=== PATIENT | male | born 1960 | race African-American/Black ===

== ENCOUNTER 2017-11-05 11:21 | Inpatient (IN) | payer MEDICARE, OTHER ==
[2017-11-05 12:59] LABS: BASO # 0.1 x10^3/uL (0.0-0.2); BASO % 1 % (0-3); EOS # 0.1 x10^3/uL (0.0-0.7); EOS % 2 % (0-3); HEMATOCRIT 39.6 % (39.0-53.0); HEMOGLOBIN 12.7 g/dL (13.0-17.5); LYMPH # 0.6 x10^3/uL (1.0-4.8); LYMPH % 6 % (24-48); MEAN CORPUSCULAR HEMOGLOBIN 28 pg (25-35); MEAN CORPUSCULAR HGB CONC 32 g/dL (31-37); MEAN CORPUSCULAR VOLUME 88 fL (79-100); MONO # 0.4 x10^3/uL (0.0-1.1); MONO % 4 % (0-9); NEUT # 7.5 x10^3uL (1.8-7.7); NEUT % 87 % (31-73); PLATELET COUNT 193 x10^3/uL (140-400); RED BLOOD COUNT 4.53 x10^6/uL (4.30-5.70); RED CELL DISTRIBUTION WIDTH 15.9 % (11.5-14.5); WHITE BLOOD COUNT 8.6 x10^3/uL (4.0-11.0)
[2017-11-05 13:02] LABS: ADD MAN DIFF? YES
[2017-11-05 13:06] LABS: ANION GAP 12 (6-14); BLOOD UREA NITROGEN 14 mg/dL (8-26); BUN/CREATININE RATIO 10 (6-20); CALCIUM 8.6 mg/dL (8.5-10.1); CARBON DIOXIDE 25 mmol/L (21-32); CHLORIDE 107 mmol/L (98-107); CREATININE 1.4 mg/dL (0.7-1.3); GFR 63.2; GLUCOSE 121 mg/dL (70-99); POTASSIUM 3.4 mmol/L (3.5-5.1); SODIUM 144 mmol/L (136-145)
[2017-11-05 13:12] LABS: ALBUMIN 3.5 g/dL (3.4-5.0); ALBUMIN/GLOBULIN RATIO 0.7 (1.0-1.7); ALK PHOS 96 U/L (46-116); ALT (SGPT) 50 U/L (16-63); AST (SGOT) 30 U/L (15-37); TOTAL BILIRUBIN 0.6 mg/dL (0.2-1.0); TOTAL PROTEIN 8.2 g/dL (6.4-8.2)
[2017-11-05 13:21] LABS: INR 1.1 (0.8-1.1)
[2017-11-05 13:22] LABS: TROPONINI 0.098 ng/mL (0.000-0.055)
[2017-11-05 13:52] LABS: % BANDS 1 % (0-9); % LYMPHS 6 % (24-48); % MONOS 8 % (0-10); % SEGS 85 % (35-66); PLT ESTIMATE ADEQUATE (ADEQUATE)
[2017-11-05] MEDS: ASPIRIN CHEWABLE 81 MG TABLET. PO (16:17)
[2017-11-05] MEDS ORDERED: CONTRAST GIVEN MC (16:45)
[2017-11-05] MEDS: IOHEXOL 300 MG/ML 100ML VIAL. IV (17:00)
[2017-11-05 19:55] LABS: TROPONINI 0.126 ng/mL (0.000-0.055)
[2017-11-06 00:01] LABS: POC GLUCOSE 191 mg/dL (70-99)
[2017-11-06 00:01] LABS: POC GLUCOSE 268 mg/dL (70-99)
[2017-11-06 00:01] LABS: POC GLUCOSE 186 mg/dL (70-99)
[2017-11-06 02:50] LABS: TROPONINI 0.137 ng/mL (0.000-0.055)
[2017-11-06 05:07] LABS: ADD MAN DIFF? NO
[2017-11-06 05:24] LABS: BASO % 0 % (0-3); EOS % 1 % (0-3); HEMOGLOBIN 13.1 g/dL (13.0-17.5); LYMPH # 0.5 x10^3/uL (1.0-4.8); LYMPH % 7 % (24-48); MEAN CORPUSCULAR HEMOGLOBIN 28 pg (25-35); MEAN CORPUSCULAR HGB CONC 32 g/dL (31-37); MEAN CORPUSCULAR VOLUME 87 fL (79-100); MONO # 0.3 x10^3/uL (0.0-1.1); MONO % 5 % (0-9); NEUT # 5.7 x10^3uL (1.8-7.7); NEUT % 87 % (31-73); PLATELET COUNT 205 x10^3/uL (140-400); RED BLOOD COUNT 4.72 x10^6/uL (4.30-5.70); RED CELL DISTRIBUTION WIDTH 16.3 % (11.5-14.5); WHITE BLOOD COUNT 6.6 x10^3/uL (4.0-11.0)
[2017-11-06] MEDS: LISINOPRIL 10 MG TABLET PO ×2 (08:25→08:29)
[2017-11-06] MEDS: amLODIPine BESYLATE 5 MG TABLET PO ×2 (08:25→08:29)
[2017-11-06 09:39] LABS: TROPONINI 0.162 ng/mL (0.000-0.055)
[2017-11-06 09:45] LABS: CKMB INDEX 1.1 % (0-4); CKMB MASS 2.9 ng/mL (0.0-3.6); CREATINE KINASE 259 U/L (39-308)
[2017-11-06 15:11] LABS: MRSA BY PCR Negative (Negative)
[2017-11-07] MEDS: amLODIPine BESYLATE 5 MG TABLET PO ×3 (08:44→15:00)
[2017-11-07] MEDS: LISINOPRIL 10 MG TABLET PO (08:45)
[2017-11-07] MEDS ORDERED: LIDOCAINE 2% 20 ML VIAL. (10:48)
[2017-11-07] MEDS ORDERED: IODIXANOL 320 MG/ML 100 ML VIAL. (10:48)
[2017-11-07] MEDS ORDERED: CONTRAST GIVEN MC (12:45)
[2017-11-07] MEDS ORDERED: fentaNYL PF VIAL 100 MCG/2 ML VIAL (12:47)
[2017-11-07] MEDS ORDERED: MIDAZOLAM HCL/PF 2 MG/2 ML VIAL. ×2 (12:47→13:38)
[2017-11-07] MEDS ORDERED: VERAPAMIL 5 MG/2 ML VIAL. (13:07)
[2017-11-07] MEDS ORDERED: HEPARIN for IV BOLUS 10,000 UNIT/10 ML VIAL. (13:08)
[2017-11-07] MEDS ORDERED: NITROGLYCERIN 200 MCG/2 ML SYRINGE FOR CATH/VASC LAB. (13:08)
[2017-11-07] MEDS ORDERED: hydrALAZINE 20 MG/ML VIAL. (13:17)
[2017-11-07] MEDS: hydrALAZINE 20 MG/ML VIAL. IVP (13:22)
[2017-11-07] MEDS ORDERED: ONDANSETRON PF 4 MG/2 ML VIAL. IV (13:45)
[2017-11-07] MEDS ORDERED: ACETAMINOPHEN 325 MG TABLET. PO (13:45)
[2017-11-07] MEDS: IODIXANOL 320 MG/ML 100 ML VIAL. IART (13:53)
[2017-11-07] MEDS: LIDOCAINE 2% 20 ML VIAL. IJ (13:54)
[2017-11-07] MEDS: fentaNYL PF VIAL 100 MCG/2 ML VIAL IV (13:55)
[2017-11-07] MEDS: MIDAZOLAM HCL/PF 2 MG/2 ML VIAL. IV (13:56)
[2017-11-07] MEDS: VERAPAMIL 5 MG/2 ML VIAL. IART (13:58)
[2017-11-07] MEDS: NITROGLYCERIN 200 MCG/2 ML SYRINGE FOR CATH/VASC LAB. IART (13:59)
[2017-11-07] MEDS: HEPARIN for IV BOLUS 10,000 UNIT/10 ML VIAL. IART (13:59)
[2017-11-07] MEDS: ASPIRIN CHEWABLE 81 MG TABLET. PO (14:50)
[2017-11-08 07:00] LABS: ADD MAN DIFF? NO
[2017-11-08 07:04] LABS: BASO % 1 % (0-3); EOS # 0.1 x10^3/uL (0.0-0.7); EOS % 3 % (0-3); HEMATOCRIT 38.9 % (39.0-53.0); HEMOGLOBIN 12.4 g/dL (13.0-17.5); LYMPH # 0.6 x10^3/uL (1.0-4.8); LYMPH % 13 % (24-48); MEAN CORPUSCULAR HEMOGLOBIN 27 pg (25-35); MEAN CORPUSCULAR HGB CONC 32 g/dL (31-37); MEAN CORPUSCULAR VOLUME 86 fL (79-100); MONO # 0.4 x10^3/uL (0.0-1.1); MONO % 9 % (0-9); NEUT # 3.2 x10^3uL (1.8-7.7); NEUT % 74 % (31-73); PLATELET COUNT 226 x10^3/uL (140-400); RED BLOOD COUNT 4.54 x10^6/uL (4.30-5.70); RED CELL DISTRIBUTION WIDTH 15.9 % (11.5-14.5); WHITE BLOOD COUNT 4.3 x10^3/uL (4.0-11.0)
[2017-11-08 07:33] LABS: ANION GAP 12 (6-14); BLOOD UREA NITROGEN 17 mg/dL (8-26); CALCIUM 8.6 mg/dL (8.5-10.1); CARBON DIOXIDE 23 mmol/L (21-32); CHLORIDE 107 mmol/L (98-107); CREATININE 1.3 mg/dL (0.7-1.3); GFR 68.8; GLUCOSE 93 mg/dL (70-99); POTASSIUM 3.9 mmol/L (3.5-5.1); SODIUM 142 mmol/L (136-145)
[2017-11-08] MEDS: ASPIRIN CHEWABLE 81 MG TABLET. PO (09:18)
[2017-11-08] MEDS: amLODIPine BESYLATE 10 MG TABLET PO (09:19)
[2017-11-08] MEDS: LISINOPRIL 20 MG TABLET PO (09:19)
[2017-11-08] MEDS: DOCUSATE SODIUM 100 MG CAPSULE. PO (09:19)
[2017-11-08 15:12] LABS: CHOLESTEROL 226 mg/dL (0-200); HDLC 74 mg/dL (40-60); LDLC 141 mg/dL (0-100); NON-HDL CHOLESTEROL 152 mg/dL (0-129); TRIGLYCERIDES 55 mg/dL (0-150); VLDLC 11 mg/dL (0-40)
[2017-11-08 15:13] LABS: CHOLESTEROL/HDL RATIO 3.1
[2017-11-08 16:01] LABS: THYROID STIM HORMONE (TSH) 3.578 uIU/mL (0.358-3.74)
[2017-11-08] MEDS: CARVEDILOL 3.125 MG TABLET. PO (17:00)
[2017-11-08 19:14] LABS: HEMOGLOBIN A1C 4.3 % (4.8-5.6)
[2017-11-08] MEDS: ATORVASTATIN CALCIUM 20 MG TABLET PO (21:30)
[2017-11-08] MEDS: LISINOPRIL 10 MG TABLET PO (21:30)
[2017-11-08] MEDS: MORPHINE SULFATE 4 MG/ML DISP.SYRIN. IV (22:25)
[2017-11-08 23:16] LABS: ANION GAP 14 (6-14); BLOOD UREA NITROGEN 19 mg/dL (8-26); BUN/CREATININE RATIO 11 (6-20); CALCIUM 9.2 mg/dL (8.5-10.1); CARBON DIOXIDE 23 mmol/L (21-32); CHLORIDE 105 mmol/L (98-107); CREATININE 1.8 mg/dL (0.7-1.3); GFR 47.3; GLUCOSE 113 mg/dL (70-99); POTASSIUM 3.8 mmol/L (3.5-5.1); SODIUM 142 mmol/L (136-145)
[2017-11-08 23:17] LABS: MAGNESIUM 2.2 mg/dL (1.8-2.4)
[2017-11-08 23:21] LABS: ALBUMIN 3.2 g/dL (3.4-5.0); ALBUMIN/GLOBULIN RATIO 0.7 (1.0-1.7); ALK PHOS 89 U/L (46-116); ALT (SGPT) 33 U/L (16-63); AST (SGOT) 30 U/L (15-37); TOTAL BILIRUBIN 0.5 mg/dL (0.2-1.0); TOTAL PROTEIN 8.1 g/dL (6.4-8.2)
[2017-11-09] MEDS: LISINOPRIL 20 MG TABLET PO (09:00)
[2017-11-09] MEDS: ASPIRIN CHEWABLE 81 MG TABLET. PO (11:03)
[2017-11-09] MEDS: amLODIPine BESYLATE 10 MG TABLET PO (11:03)
[2017-11-09] MEDS: IV NORMAL SALINE 1000ML BAG 1,000 ML IV (17:07)
[2017-11-09] MEDS: CARVEDILOL 6.25 MG TABLET. PO (17:08)
[2017-11-09] MEDS: hydrALAZINE 20 MG/ML VIAL. IVP (17:09)
[2017-11-09] MEDS: ATORVASTATIN CALCIUM 20 MG TABLET PO (20:51)
[2017-11-09] MEDS: AMIODARONE HCL 200 MG TABLET. PO (20:52)
[2017-11-10 05:04] LABS: ADD MAN DIFF? NO
[2017-11-10 05:13] LABS: BASO % 0 % (0-3); EOS # 0.2 x10^3/uL (0.0-0.7); EOS % 3 % (0-3); HEMATOCRIT 42.7 % (39.0-53.0); HEMOGLOBIN 13.3 g/dL (13.0-17.5); LYMPH # 0.3 x10^3/uL (1.0-4.8); LYMPH % 5 % (24-48); MEAN CORPUSCULAR HEMOGLOBIN 27 pg (25-35); MEAN CORPUSCULAR HGB CONC 31 g/dL (31-37); MEAN CORPUSCULAR VOLUME 88 fL (79-100); MONO # 0.4 x10^3/uL (0.0-1.1); MONO % 6 % (0-9); NEUT # 5.2 x10^3uL (1.8-7.7); NEUT % 85 % (31-73); PLATELET COUNT 231 x10^3/uL (140-400); RED BLOOD COUNT 4.87 x10^6/uL (4.30-5.70); RED CELL DISTRIBUTION WIDTH 16.2 % (11.5-14.5); WHITE BLOOD COUNT 6.1 x10^3/uL (4.0-11.0)
[2017-11-10 05:30] LABS: ANION GAP 8 (6-14); BLOOD UREA NITROGEN 19 mg/dL (8-26); CARBON DIOXIDE 27 mmol/L (21-32); CHLORIDE 107 mmol/L (98-107); CREATININE 1.6 mg/dL (0.7-1.3); GFR 54.2; GLUCOSE 98 mg/dL (70-99); POTASSIUM 4.3 mmol/L (3.5-5.1); SODIUM 142 mmol/L (136-145)
[2017-11-10] MEDS ORDERED: IV RINGERS,LACTATED 1000ML 1,000 ML IV (07:40)
[2017-11-10] MEDS ORDERED: MORPHINE SULFATE 2 MG/ML DISP.SYRIN. IV (07:45)
[2017-11-10] MEDS ORDERED: fentaNYL PF VIAL 100 MCG/2 ML VIAL IV ×2 (07:45)
[2017-11-10] MEDS ORDERED: LIDOCAINE 1% PF 2 ML VIAL. ID (07:45)
[2017-11-10] MEDS ORDERED: ONDANSETRON PF 4 MG/2 ML VIAL. IV (07:45)
[2017-11-10] MEDS ORDERED: PROCHLORPERAZINE 10 MG/2 ML VIAL. IV (07:45)
[2017-11-10] MEDS ORDERED: HYDROmorphone 2 MG/ML VIAL IV (07:45)
[2017-11-10] MEDS: CARVEDILOL 6.25 MG TABLET. PO ×2 (08:17→17:31)
[2017-11-10] MEDS: ASPIRIN CHEWABLE 81 MG TABLET. PO (08:17)
[2017-11-10] MEDS: amLODIPine BESYLATE 10 MG TABLET PO (08:17)
[2017-11-10] MEDS: AMIODARONE HCL 200 MG TABLET. PO ×2 (08:18→21:11)
[2017-11-10 08:53] LABS: BILIRUBIN,URINE NEGATIVE (NEG); CLARITY,URINE CLEAR; COLOR,URINE YELLOW; GLUCOSE,URINE NEGATIVE (NEG); NITRITE,URINE POSITIVE (NEG); PROTEIN,URINE 30 mg/dL (NEG-TRACE)
[2017-11-10] MEDS ORDERED: LIDOCAINE 2%/EPI 1:100,000 20 ML VIAL. (09:17)
[2017-11-10] MEDS ORDERED: fentaNYL PF VIAL 100 MCG/2 ML VIAL (09:18)
[2017-11-10] MEDS ORDERED: MIDAZOLAM HCL/PF 2 MG/2 ML VIAL. ×2 (09:18→09:53)
[2017-11-10 09:25] LABS: BACTERIA,URINE FEW /HPF (0-FEW); RBC,URINE 0 /HPF (0-2); SQUAMOUS EPITHELIAL CELL,UR OCC /LPF; WBC,URINE 0 /HPF (0-4)
[2017-11-10] MEDS ORDERED: hydrALAZINE 20 MG/ML VIAL. (09:50)
[2017-11-10] MEDS ORDERED: IODIXANOL 320 MG/ML 100 ML VIAL. (09:58)
[2017-11-10] MEDS: hydrALAZINE 20 MG/ML VIAL. IVP (10:00)
[2017-11-10] MEDS: BACITRACIN 50,000 UNIT in IV NORMAL SALINE 250ML 250 ML IRR (11:04)
[2017-11-10] MEDS: LIDOCAINE 2%/EPI 1:100,000 20 ML VIAL. IJ (11:05)
[2017-11-10] MEDS: MIDAZOLAM HCL/PF 2 MG/2 ML VIAL. IV (11:08)
[2017-11-10] MEDS: IODIXANOL 320 MG/ML 100 ML VIAL. IART (11:08)
[2017-11-10] MEDS: fentaNYL PF VIAL 100 MCG/2 ML VIAL IV (11:08)
[2017-11-10] MEDS ORDERED: NO ANTICOAGULANT THERAPY. MC (11:15)
[2017-11-10] MEDS ORDERED: PROPOFOL 20 ML IV (16:06)
[2017-11-10] MEDS: ATORVASTATIN CALCIUM 20 MG TABLET PO (21:10)
[2017-11-10] MEDS: traMADol 50 MG TABLET PO (21:10)
[2017-11-11] MEDS: traMADol 50 MG TABLET PO (09:17)
[2017-11-11] MEDS: ASPIRIN CHEWABLE 81 MG TABLET. PO (10:54)
[2017-11-11] MEDS: amLODIPine BESYLATE 10 MG TABLET PO (10:54)
[2017-11-11] MEDS: CARVEDILOL 6.25 MG TABLET. PO (10:55)
[2017-11-11] MEDS: AMIODARONE HCL 200 MG TABLET. PO (10:55)
== END 2017-11-11 16:40 | DRG 222 ==
LOC: 2 SOUTH 11-06 12:55 → ER 11:21 → 2 SOUTH 15:04 → 1 WEST ICU 18:08
PROC: 4A023N7 Measurement of Cardiac Sampling and Pressure, Left Heart, Percutaneous Approach (ICD-10-PCS; principal; 2017-11-07)
PROC: B2111ZZ Fluoroscopy of Multiple Coronary Arteries using Low Osmolar Contrast (ICD-10-PCS; 2017-11-07)
PROC: B2151ZZ Fluoroscopy of Left Heart using Low Osmolar Contrast (ICD-10-PCS; 2017-11-07)
PROC: 02HK3KZ Insertion of Defibrillator Lead into Right Ventricle, Percutaneous Approach (ICD-10-PCS; 2017-11-11)
PROC: 0JH608Z Insertion of Defibrillator Generator into Chest Subcutaneous Tissue and Fascia, Open Approach (ICD-10-PCS; 2017-11-11)
DX: I13.0 Hypertensive heart and chronic kidney disease with heart failure and stage 1 through stage 4 chronic kidney disease, or unspecified chronic kidney disease (principal); I21.A1 Myocardial infarction type 2; I49.01 Ventricular fibrillation; I50.21 Acute systolic (congestive) heart failure; N17.9 Acute kidney failure, unspecified; I47.2 Ventricular tachycardia; I16.1 Hypertensive emergency; I42.9 Cardiomyopathy, unspecified; D32.9 Benign neoplasm of meninges, unspecified; E87.5 Hyperkalemia; G93.89 Other specified disorders of brain; I49.3 Ventricular premature depolarization; K76.89 Other specified diseases of liver; N18.9 Chronic kidney disease, unspecified; Z82.49 Family history of ischemic heart disease and other diseases of the circulatory system
CPT/HCPCS: 33230; 36415; 70450; 71045; 71046; 71275; 76770; 80048; 80053; 80061; 81001; 82553; 82962; 83036; 83735; 84443; 84484; 85007; 85025; 85610; 87086; 87186; 87641; 93005; 93306; 93458; 97162-GP; 97165-GO; 99152; 99153; 99285; 99285-25; C1769; C1892; C1895; C1898; J0360; J0690; J1644; J2250; J2270; J2704; J3010; J3490; J7030; J7050

== ENCOUNTER 2018-02-05 16:09 | Emergency (ER) | payer MEDICARE, OTHER ==
[2018-02-05] MEDS: FUROSEMIDE 40 MG/4 ML VIAL. IVP (16:30)
[2018-02-05 16:47] LABS: BASO % 1 % (0-3); EOS # 0.1 x10^3/uL (0.0-0.7); EOS % 1 % (0-3); HEMATOCRIT 34.2 % (39.0-53.0); HEMOGLOBIN 11.1 g/dL (13.0-17.5); LYMPH # 0.4 x10^3/uL (1.0-4.8); LYMPH % 5 % (24-48); MEAN CORPUSCULAR HEMOGLOBIN 28 pg (25-35); MEAN CORPUSCULAR HGB CONC 32 g/dL (31-37); MEAN CORPUSCULAR VOLUME 86 fL (79-100); MONO # 0.4 x10^3/uL (0.0-1.1); MONO % 4 % (0-9); NEUT # 7.7 x10^3uL (1.8-7.7); NEUT % 90 % (31-73); PLATELET COUNT 240 x10^3/uL (140-400); RED BLOOD COUNT 3.96 x10^6/uL (4.30-5.70); WHITE BLOOD COUNT 8.6 x10^3/uL (4.0-11.0)
[2018-02-05 16:48] LABS: ADD MAN DIFF? YES
[2018-02-05 16:57] LABS: ANION GAP 11 (6-14); BLOOD UREA NITROGEN 15 mg/dL (8-26); BUN/CREATININE RATIO 11 (6-20); CALCIUM 8.6 mg/dL (8.5-10.1); CARBON DIOXIDE 24 mmol/L (21-32); CHLORIDE 103 mmol/L (98-107); CREATININE 1.4 mg/dL (0.7-1.3); GFR 63.2; GLUCOSE 105 mg/dL (70-99); POTASSIUM 3.6 mmol/L (3.5-5.1); SODIUM 138 mmol/L (136-145)
[2018-02-05 17:03] LABS: ALBUMIN 3.4 g/dL (3.4-5.0); ALBUMIN/GLOBULIN RATIO 0.7 (1.0-1.7); ALK PHOS 101 U/L (46-116); ALT (SGPT) 14 U/L (16-63); AST (SGOT) 19 U/L (15-37); TOTAL BILIRUBIN 0.4 mg/dL (0.2-1.0); TOTAL PROTEIN 8.5 g/dL (6.4-8.2)
[2018-02-05 17:28] LABS: % BANDS 2 % (0-9); % BASOS 1 % (0-3); % LYMPHS 5 % (24-48); % MONOS 2 % (0-10); % SEGS 90 % (35-66)
[2018-02-05 17:32] LABS: PLT ESTIMATE ADEQUATE (ADEQUATE); POLYCHROMASIA SLIGHT
== END 2018-02-05 17:53 | disposition home or self-care (01) ==
LOC: ER 16:09
DX: R60.0 Localized edema (principal); I12.9 Hypertensive chronic kidney disease with stage 1 through stage 4 chronic kidney disease, or unspecified chronic kidney disease; N18.9 Chronic kidney disease, unspecified; Z95.0 Presence of cardiac pacemaker
CPT/HCPCS: 36415; 71046; 80053; 85007; 85025; 93005; 96374; 99285-25; J1940

== ENCOUNTER 2018-04-28 15:35 | Emergency (ER) | payer MEDICARE, OTHER ==
[~2018-04-28] VITALS: Ht 165.1 cm; Wt 70.3 kg
[~2018-04-28 15:35] MED LIST: AMIO200T4 PO; AMLO10TA2 PO; ASPI-630 PO; ATOR20TA58 PO; CARV6.252 PO; FURO-68 PO; POTA10TA6 PO
[2018-04-28] MEDS ORDERED: cloNIDine HCL 0.1 MG TABLET PO ONE (16:30)
--- NOTE | 2018-04-28 16:52 | RAD ---
EXAM: Chest, single view. HISTORY: Hypertension. COMPARISON: 02/05/2018 FINDINGS: A frontal view of the chest is obtained. There is no infiltrate, pleural effusion or pneumothorax. There is a prominent cardiac silhouette, likely due to portable technique. There is a cardiac pacemaker defibrillator with leads overlying expected position. IMPRESSION: No acute pulmonary finding. Electronically signed by: Sofy Lira MD (04/28/2018 4:50 PM) [facility] [place]
--- NOTE | 2018-04-28 17:14 | PHYS DOC ---
Past Medical History Past Medical History: CHF, Hypertension, Renal Disease, Other Additional Past Medical Histor: CEREBRAL PALSY Past Surgical History: Pacemaker, Other Additional Past Surgical Histo: HAMSTRING RELEASE, BILAT GROIN, L HIP PLATE, BONE TRANSFUSION Alcohol Use: None Drug Use: None Adult General Chief Complaint Chief Complaint: HYPERTENSION HPI HPI Patient is a 57 year old male with history of hypertension, CHF, renal disease , who presents today complaining of high blood pressure. Patient states he just came from Dr. Simth's office and was noted to have high blood patient is in the 190s over 120s. Patient states he has no symptoms. He states he took on his blood pressure medications this morning. Review of Systems Review of Systems Constitutional: Denies fever or chills [] Eyes: Denies change in visual acuity, redness, or eye pain [] HENT: Denies nasal congestion or sore throat [] Respiratory: Denies cough or shortness of breath [] Cardiovascular: Reports high blood pressure GI: Denies abdominal pain, nausea, vomiting, bloody stools or diarrhea [] : Denies dysuria or hematuria [] Musculoskeletal: Denies back pain or joint pain [] Integument: Denies rash or skin lesions [] Neurologic: Denies headache, focal weakness or sensory changes [] All other systems were reviewed and found to be within normal limits, except as documented in this note. Current Medications Current Medications Current Medications Medications (Trade) Dose Ordered Sig/Vu Start Time Stop Time Status Last Admin Dose Admin Clonidine HCl (Catapres) 0.1 mg 1X ONCE 04/28/18 16:30 04/28/18 16:31 DC 04/28/18 17:16 0.1 MG Allergies Allergies Allergies Coded Allergies Type Severity Reaction Last Updated Verified No Known Drug Allergies 04/28/18 No Physical Exam Physical Exam Constitutional: Well developed, well nourished, no acute distress, non-toxic appearance. [] HENT: Normocephalic, atraumatic, bilateral external ears normal, oropharynx moist, no oral exudates, nose normal. [] Eyes: PERRLA, EOMI, conjunctiva normal, no discharge. Lazy eye to the left Neck: Normal range of motion, no tenderness, supple, no stridor. [] Cardiovascular:Heart rate regular rhythm, no murmur [] Lungs & Thorax: Bilateral breath sounds clear to auscultation [] Abdomen: Bowel sounds normal, soft, no tenderness, no masses, no pulsatile masses. [] Skin: Warm, dry, no erythema, no rash. [] Back: No tenderness, no CVA tenderness. [] Extremities: No tenderness, no cyanosis, no clubbing, ROM intact, no edema. [] Neurologic: Alert and oriented X 3, normal motor function, normal sensory function, no focal deficits noted. Cranial nerves II through XII intact Psychologic: Affect normal, judgement normal, mood normal. [] Current Patient Data Vital Signs Vital Signs Date Time Temp Pulse Resp B/P (MAP) Pulse Ox O2 Delivery O2 Flow Rate FiO2 04/28/18 17:16 76 172/102 04/28/18 16:00 20 98 Room Air Lab Values Laboratory Tests Test 04/28/18 17:15 White Blood Count 8.2 x10^3/uL (4.0-11.0) Red Blood Count 4.64 x10^6/uL (4.30-5.70) Hemoglobin 12.7 g/dL (13.0-17.5) L Hematocrit 39.9 % (39.0-53.0) Mean Corpuscular Volume 86 fL (79-100) Mean Corpuscular Hemoglobin 27 pg (25-35) Mean Corpuscular Hemoglobin Concent 32 g/dL (31-37) Red Cell Distribution Width 14.6 % (11.5-14.5) H Platelet Count 253 x10^3/uL (140-400) Neutrophils (%) (Auto) 84 % (31-73) H Lymphocytes (%) (Auto) 10 % (24-48) L Monocytes (%) (Auto) 4 % (0-9) Eosinophils (%) (Auto) 2 % (0-3) Basophils (%) (Auto) 1 % (0-3) Neutrophils # (Auto) 6.9 x10^3uL (1.8-7.7) Lymphocytes # (Auto) 0.8 x10^3/uL (1.0-4.8) L Monocytes # (Auto) 0.3 x10^3/uL (0.0-1.1) Eosinophils # (Auto) 0.2 x10^3/uL (0.0-0.7) Basophils # (Auto) 0.1 x10^3/uL (0.0-0.2) Sodium Level 137 mmol/L (136-145) Potassium Level 3.7 mmol/L (3.5-5.1) Chloride Level 101 mmol/L (98-107) Carbon Dioxide Level 26 mmol/L (21-32) Anion Gap 10 (6-14) Blood Urea Nitrogen 17 mg/dL (8-26) Creatinine 1.5 mg/dL (0.7-1.3) H Estimated GFR (Cockcroft-Gault) 58.4 Glucose Level 100 mg/dL (70-99) H Calcium Level 9.5 mg/dL (8.5-10.1) Troponin I Quantitative 0.033 ng/mL (0.000-0.055) Laboratory Tests 04/28/18 17:15 Laboratory Tests 04/28/18 17:15 EKG EKG Interpreted by Dr. Mcghee sinus rhythm heart rate 82 no STEMI[] Radiology/Procedures Radiology/Procedures []PROCEDURE: PORTABLE CHEST 1V EXAM: Chest, single view. HISTORY: Hypertension. COMPARISON: 02/05/2018 FINDINGS: A frontal view of the chest is obtained. There is no infiltrate, pleural effusion or pneumothorax. There is a prominent cardiac silhouette, likely due to portable technique. There is a cardiac pacemaker defibrillator with leads overlying expected position. IMPRESSION: No acute pulmonary finding. Electronically signed by: Sofy Crews MD (04/28/2018 4:50 PM) [facility] [place] DICTATED and SIGNED BY: SOFY CREWS MD DATE: 04/28/18 7460 Course & Med Decision Making Course & Med Decision Making Pertinent Labs and Imaging studies reviewed. (See chart for details) This is a 57-year-old male patient presenting to the ED today to be evaluated after being noted to have high blood pressure at the doctor's office. This has history of hypertension. He is a symptomatic. Blood pressure arrival 185/99. Given clonidine 0.1 mg. 17:51 blood pressure 167/87. He still a symptomatic. His labs are negative for any acute findings, chest x-ray is negative EKG is negative. Patient will be discharged home to follow up with the primary care doctor in 1-2 weeks. Dragon Disclaimer Dragon Disclaimer This electronic medical record was generated, in whole or in part, using a voice recognition dictation system. Departure Departure Impression: Primary Impression: Hypertension Disposition: 01 HOME, SELF-CARE Condition: STABLE Referrals: NIMA MEYER (PCP) Follow-up next week Patient Instructions: Hypertension Additional Instructions: You were evaluated in the emergency room for high blood pressure. Please continue taking your blood pressure medications, follow-up with your doctor in the course of next week. Come back to the emergency room at any point you have concerning symptoms. Problem Qualifiers Primary Impression: Hypertension Hypertension type: unspecified Qualified Codes: I10 - Essential (primary) hypertension RONDA ROBERTO PACKAGE DYER Apr 28, 2018 17:14
[2018-04-28 17:19] LABS: BASO # 0.1 x10^3/uL (0.0-0.2); BASO % 1 % (0-3); EOS # 0.2 x10^3/uL (0.0-0.7); EOS % 2 % (0-3); HEMATOCRIT 39.9 % (39.0-53.0); HEMOGLOBIN 12.7 g/dL (13.0-17.5); LYMPH # 0.8 x10^3/uL (1.0-4.8); LYMPH % 10 % (24-48); MEAN CORPUSCULAR HEMOGLOBIN 27 pg (25-35); MEAN CORPUSCULAR HGB CONC 32 g/dL (31-37); MEAN CORPUSCULAR VOLUME 86 fL (79-100); MONO # 0.3 x10^3/uL (0.0-1.1); MONO % 4 % (0-9); NEUT # 6.9 x10^3uL (1.8-7.7); NEUT % 84 % (31-73); PLATELET COUNT 253 x10^3/uL (140-400); RED BLOOD COUNT 4.64 x10^6/uL (4.30-5.70); RED CELL DISTRIBUTION WIDTH 14.6 % (11.5-14.5); WHITE BLOOD COUNT 8.2 x10^3/uL (4.0-11.0)
[2018-04-28 17:38] LABS: CALCIUM 9.5 mg/dL (8.5-10.1); CREATININE 1.5 mg/dL (0.7-1.3); GFR 58.4; POTASSIUM 3.7 mmol/L (3.5-5.1)
[2018-04-28 18:02] VITALS: BP 157/97
--- NOTE | 2018-04-28 18:09 | EKG ---
[facility] [address] [place] [address] Test Date: 2018-04-28 Test Time: 16:08:18 Pat Name: SARINA PRUITT Department: Room: Gender: M [employer] Lab[employer]: : 1960 Requested By: RONDA ROBERTO Order Number: [id number] Reading MD: Tariq Hood MD Measurements Intervals [place] Rate: 82 P: 41 TN: 180 QRS: -27 QRSD: 116 T: 93 QT: 410 QTc: 482 Interpretive Statements SINUS RHYTHM VENTRICULAR PREMATURE COMPLEX(ES) Electronically Signed On 05-02-2018 8:59:44 CDT by Tariq Hood MD
== END 2018-04-28 18:32 | disposition home or self-care (01) ==
LOC: ER 15:35
DX: I11.0 Hypertensive heart disease with heart failure (principal); I50.9 Heart failure, unspecified; N28.9 Disorder of kidney and ureter, unspecified; G80.9 Cerebral palsy, unspecified; Z95.0 Presence of cardiac pacemaker
CPT/HCPCS: 36415; 71045; 80048; 82553; 83880; 84484; 85025; 93005; 99285-25

== ENCOUNTER 2018-06-06 08:44 | Outpatient (CLI) | payer MEDICARE, OTHER ==
[2018-06-06] VITALS (9 sets, daily range): BP systolic 140–187; BP diastolic 83–94
[~2018-06-06] VITALS: Ht 167.6 cm; Wt 67.1 kg
[~2018-06-06 08:44] MED LIST changes: -AMLO10TA2 PO; +AMLO10TA6 PO; +LIDOCAINE WITH 8.4% SOD BICARB 3 ML DISP.SYRIN. ONE
[2018-06-06 09:28] LABS: BASO # 0.1 x10^3/uL (0.0-0.2); BASO % 1 % (0-3); EOS # 0.5 x10^3/uL (0.0-0.7); EOS % 7 % (0-3); HEMATOCRIT 32.4 % (39.0-53.0); HEMOGLOBIN 10.3 g/dL (13.0-17.5); LYMPH % 16 % (24-48); MEAN CORPUSCULAR HEMOGLOBIN 28 pg (25-35); MEAN CORPUSCULAR HGB CONC 32 g/dL (31-37); MEAN CORPUSCULAR VOLUME 89 fL (79-100); MONO # 0.5 x10^3/uL (0.0-1.1); MONO % 8 % (0-9); NEUT # 4.3 x10^3uL (1.8-7.7); NEUT % 67 % (31-73); PLATELET COUNT 179 x10^3/uL (140-400); RED BLOOD COUNT 3.65 x10^6/uL (4.30-5.70); RED CELL DISTRIBUTION WIDTH 14.5 % (11.5-14.5); WHITE BLOOD COUNT 6.3 x10^3/uL (4.0-11.0)
[2018-06-06] MEDS ORDERED: LIDOCAINE WITH 8.4% SOD BICARB 3 ML DISP.SYRIN. ONE (09:30)
[2018-06-06] MEDS ORDERED: MIDAZOLAM HCL/PF 2 MG/2 ML VIAL. ONE (09:34)
[2018-06-06] MEDS ORDERED: fentaNYL PF VIAL 100 MCG/2 ML VIAL ONE (09:34)
[2018-06-06 09:38] LABS: PROTHROMBIN TIME PATIENT 12.6 SEC (11.7-14.0)
[2018-06-06 09:42] LABS: CALCIUM 9.5 mg/dL (8.5-10.1); CREATININE 2.2 mg/dL (0.7-1.3); GFR 37.5; POTASSIUM 3.9 mmol/L (3.5-5.1)
[2018-06-06] MEDS ORDERED: fentaNYL PF VIAL 100 MCG/2 ML VIAL IV ONE (09:45)
[2018-06-06] MEDS ORDERED: LIDOCAINE WITH 8.4% SOD BICARB 3 ML DISP.SYRIN. IJ ONE (09:45)
[2018-06-06] MEDS ORDERED: MIDAZOLAM HCL/PF 2 MG/2 ML VIAL. IV ONE (09:45)
[2018-06-06 09:48] LABS: ALBUMIN/GLOBULIN RATIO 0.8 (1.0-1.7); TOTAL BILIRUBIN 0.4 mg/dL (0.2-1.0); TOTAL PROTEIN 9.1 g/dL (6.4-8.2)
[2018-06-06] MEDS ORDERED: LOSA50TA7 PO (09:53)
--- NOTE | 2018-06-06 13:57 | RAD ---
CT-guided bone marrow biopsy. 06/06/2018 1:53 PM Indication: Elevated kappa light chains Discussion: The risks and benefits of the procedure, including but not limited to, bleeding and infection were discussed patient. Informed consent was obtained. The patient was brought to the CT scanner and placed in the prone position. A timeout procedure was performed. Distance [employer] Liaison CT imaging of the pelvis demonstrated left ilium amenable to bone marrow biopsy. The overlying soft tissues were prepped and draped using maximum sterile barrier technique. 1% lidocaine without epinephrine was administered for local anesthesia. Under intermittent CT guidance, an OncControl needle was advanced into the bone marrow of the left iliac crest. 2 Aspirates and 1 core biopsy samples were obtained. Samples were delivered to pathology was present at the time of procedure. The needle was removed and manual pressure held to achieve hemostasis. No immediate complications were identified. The procedure was performed under conscious sedation including continuous cardiopulmonary monitoring via dedicated sedation nurse. Sedation time: 20 minutes Impression: Successful CT-guided bone marrow biopsy of the left iliac crest . PQRS Compliance Statement: One or more of the following individualized dose reduction techniques were utilized for this examination: 1. Automated exposure control 2. Adjustment of the mA and/or kV according to patient size 3. Use of iterative reconstruction technique
== END 2018-06-06 11:30 | disposition home or self-care (01) ==
LOC: INTRAD 08:44
PROVIDERS: ATTEND Internal Medicine Hematology & Oncology
DX: D80.8 Other immunodeficiencies with predominantly antibody defects (principal); I11.0 Hypertensive heart disease with heart failure; I50.9 Heart failure, unspecified; G80.9 Cerebral palsy, unspecified; I25.10 Atherosclerotic heart disease of native coronary artery without angina pectoris; Z95.0 Presence of cardiac pacemaker; Z79.899 Other long term (current) drug therapy; Z98.890 Other specified postprocedural states
CPT/HCPCS: 36415; 38222; 77012; 80053; 85025; 85610; 88184; 88185; 88237; J2250; J3010; 99152

== ENCOUNTER → 2018-08-11 | Outpatient (CLI) | payer MEDICARE, OTHER ==
[2018-06-06 11:00] VITALS: BP 140/83
[~2018-08-11] MED LIST changes: +CARV6.2511 PO; -CARV6.252 PO; -LIDOCAINE WITH 8.4% SOD BICARB 3 ML DISP.SYRIN. ONE; +LOSA-73 PO
--- NOTE | 2018-08-11 16:12 | CARD ---
MR#: [id number] Date of Study: 08/11/2018 Ordering Physician: WES JAMES, Referring Physician: WES JAMES, Tech: Marian Newman APPROVED REPORT EXAM: Two-dimensional and M-mode echocardiogram with Doppler and color Doppler. Other Information Quality : GoodHR: 65bpm INDICATION Cardiomyopathy Surgery/Intervention ICD/Pacemaker: RISK FACTORS Hypertension Hyperlipidemia 2D DIMENSIONS RVDd2.5 (2.9-3.5cm)Left Atrium(2D)3.9 (1.6-4.0cm) IVSd1.2 (0.7-1.1cm)Aortic Root(2D)3.2 (2.0-3.7cm) LVDd5.5 (3.9-5.9cm)LVOT Diameter2.2 (1.8-2.4cm) PWd1.4 (0.7-1.1cm)LVDs4.0 (2.5-4.0cm) FS (%) 26.8 %SV75.6 ml Aortic Valve AoV Peak Pablito.133.6cm/sAoV VTI27.1cm AO Peak GR.7.1mmHgLVOT Peak Pablito.73.0cm/s LVOT VTI 17.77cmAO Mean GR.4mmHg CATA (VMAX)2.60cm2 Mitral Valve MV E Ixahvttv67.3cm/sMV DECEL MQOR284qu MV A Mwggdopg78.0cm/sMV CLW91dj E/A Ratio0.9MVA (PHT)4.69cm2 TDI E/Lateral E'12.8E/Medial E'13.8 Pulmonary Valve PV Peak Cwdarqcv426.7cm/sPV Peak Grad.5mmHg Tricuspid Valve TR P. Twahrwtb216gq/sRAP TKLECVER8twLm TR Peak Gr.89dyOtOKWV95zhBy Pulmonary Vein S1 Tvzuwnjc53.7cm/sD2 Vdjkuofn18.0cm/s PVa bisvdmfx821iuwe LEFT VENTRICLE The left ventricle is normal size. There is borderline to mild concentric left ventricular hypertroph y. The systolic function is moderately impaired. The Ejection Fraction is 30-35%. There is global hyp okinesis of the left ventricle. RIGHT VENTRICLE The right ventricle is normal size. There is normal right ventricular wall thickness. The right ventr icular systolic function is normal. There is a pacemaker lead in the right ventricle. ATRIA The left atrium size is normal. The right atrium size is normal. The interatrial septum is intact wit h no evidence for an atrial septal defect or patent foramen ovale as noted on 2-D or Doppler imaging. AORTIC VALVE The aortic valve is normal in structure and function. Doppler and Color Flow revealed trace aortic re gurgitation. There is no significant aortic valvular stenosis. MITRAL VALVE The mitral valve is normal in structure and function. There is no mitral valve stenosis. Doppler and Color-flow revealed trace mitral regurgitation. TRICUSPID VALVE The tricuspid valve is not well visualized. Doppler and Color Flow revealed trace tricuspid regurgita tion. There is no tricuspid valve stenosis. PULMONIC VALVE The pulmonic valve is not well visualized. Doppler and Color Flow revealed trace pulmonic valvular re gurgitation. GREAT VESSELS The aortic root is normal in size. The IVC is normal in size and collapses >50% with inspiration. PERICARDIAL EFFUSION There is no evidence of significant pericardial effusion. Critical Notification Critical Value: No <Conclusion> The systolic function is moderately impaired. The Ejection Fraction is 30-35%. There is a pacemaker lead in the right atrium and right ventricle. Trace mitral regurgitation. Trace tricuspid regurgitation. There is no evidence of significant pericardial effusion. Signed by : Jorge Vicente, Electronically Approved : 08/11/2018 16:10:47
== END | disposition home or self-care (01) ==
LOC: ECHO 14:12
PROVIDERS: ATTEND Internal Medicine Cardiovascular Disease
DX: I42.8 Other cardiomyopathies (principal); Z95.810 Presence of automatic (implantable) cardiac defibrillator
CPT/HCPCS: 93306

== ENCOUNTER 2019-12-17 12:50 | Emergency (ER) | payer MEDICARE, OTHER ==
[~2019-12-17] VITALS: Ht 167.6 cm; Wt 80.0 kg
[~2019-12-17 12:50] MED LIST changes: -AMLO10TA6 PO; +AMLO10TA8 PO; +CARV12.511 PO
[2019-12-17 13:08] VITALS: BP 177/93
--- NOTE | 2019-12-17 13:36 | RAD ---
ANKLE LEFT 3V DATE: 12/17/2019 1:15 PM INDICATION: Ankle pain after injury COMPARISON: None. FINDINGS: Bones: There is no evidence of acute fracture or dislocation. Joints: The ankle mortise is congruent. No widening of the distal tibiofibular syndesmosis. Miscellaneous: None. IMPRESSION: No evidence of acute fracture. Electronically signed by: Harjeet Jensen MD (12/17/2019 1:33 PM) [id number]
[2019-12-17] MEDS ORDERED: NAPR-695 PO (14:04)
--- NOTE | 2019-12-17 14:04 | PHYS DOC ---
Past Medical History Past Medical History: CHF, Hypertension, Renal Disease, Other Additional Past Medical Histor: CEREBRAL PALSY Past Surgical History: Pacemaker, Other Additional Past Surgical Histo: HAMSTRING RELEASE, BILAT GROIN, L HIP PLATE, BONE TRANSFUSION Smoking Status: Never Smoker Alcohol Use: None Drug Use: None General Adult EDM: Chief Complaint: FOOT INJURY PAIN HPI: HPI: Patient is a 59 year old AA male who presents to the ER with complaints of left ankle pain and swelling for the last 3 weeks. Patient states he accidentally rolled his ankle while using his crutches. Patient reports history of cerebral palsy that he uses crutches for ambulation. He denies any numbness, tingling, or weakness of the affected extremity. He reports that his pain is been a 5 out of 10 on the pain scale, the pain increases with weightbearing. He denies any alleviating factors. Review of Systems: Review of Systems: Constitutional: Denies fever or chills. [] Musculoskeletal: See HPI Integument: Denies rash. [] Neurologic: Denies focal weakness or sensory changes. [] Psychiatric: Denies depression or anxiety. [] Heart Score: Risk Factors: Risk Factors: DM, Current or recent (<one month) smoker, HTN, HLP, family history of CAD, obesity. Risk Scores: Score 0 - 3: 2.5% MACE over next 6 weeks - Discharge Home Score 4 - 6: 20.3% MACE over next 6 weeks - Admit for Clinical Observation Score 7 - 10: 72.7% MACE over next 6 weeks - Early Invasive Strategies Allergies: Allergies: Allergies Coded Allergies Type Severity Reaction Last Updated Verified No Known Drug Allergies 04/28/18 No Physical Exam: PE: Constitutional: Well developed, well nourished, no acute distress, non-toxic appearance. [] HENT: Normocephalic, atraumatic, bilateral external ears normal, nose normal. [] Eyes: PERRLA, EOMI, conjunctiva normal, no discharge. [] Neck: Normal range of motion, no stridor. [] Cardiovascular:Heart rate regular rhythm Lungs & Thorax: Respirations even and unlabored, no retractions, no respiratory distress Skin: Warm, dry, no erythema, no rash. [] Extremities: LLE: lateral ankle TTP, no crepitus, no obvious deformity, 2+ edema L ankle, no cyanosis, no clubbing, ROM intact Neurologic: Alert and oriented X 3, no focal deficits noted. [] Psychologic: Affect normal, judgement normal, mood normal. [] Current Patient Data: Vital Signs: Vital Signs Date Time Temp Pulse Resp B/P (MAP) Pulse Ox O2 Delivery O2 Flow Rate FiO2 12/17/19 13:08 98.1 78 16 177/93 (121) 99 Room Air 98.1 EKG: EKG: [] Radiology/Procedures: Radiology/Procedures: PROCEDURE: ANKLE LEFT 3V ANKLE LEFT 3V DATE: 12/17/2019 1:15 PM INDICATION: Ankle pain after injury COMPARISON: None. FINDINGS: Bones: There is no evidence of acute fracture or dislocation. Joints: The ankle mortise is congruent. No widening of the distal tibiofibular syndesmosis. Miscellaneous: None. IMPRESSION: No evidence of acute fracture. [] Course & Med Decision Making: Course & Med Decision Making Pertinent Labs and Imaging studies reviewed. (See chart for details) [] Dragon Disclaimer: Dragon Disclaimer: This electronic medical record was generated, in whole or in part, using a voice recognition dictation system. Departure Departure Impression: Primary Impression: Left lateral ankle pain Additional Impression: Left ankle injury Qualified Codes: S99.912A - Unspecified injury of left ankle, initial encounter Disposition: 01 HOME, SELF-CARE Condition: STABLE Referrals: NIMA MEYER (PCP) DOMENICO SHEETS MD Patient Instructions: Ankle Pain Additional Instructions: Fill prescription(s) and use as directed. Recommend application of ice, elevation, and rest of affected extremity. Wear the Manjit wrap that was applied as needed for comfort. Follow-up with your primary care doctor Dr. Sheets if symptoms persist. Return to the ER if your symptoms worsen. Scripts Naproxen (NAPROXEN) 375 Mg Tablet 1 TAB PO BID for pain for 10 Days, #20 TAB 0 Refills with food Prov: DONALDO TORRES APRN 12/17/19 DONALDO TORRES APRN Dec 17, 2019 14:04
== END 2019-12-17 14:55 | disposition home or self-care (01) ==
LOC: ER 12:50
DX: S99.912A Unspecified injury of left ankle, initial encounter (principal); I11.0 Hypertensive heart disease with heart failure; I50.9 Heart failure, unspecified; Z95.0 Presence of cardiac pacemaker; X50.9XXA Other and unspecified overexertion or strenuous movements or postures, initial encounter; Y93.89 Activity, other specified; Y92.89 Other specified places as the place of occurrence of the external cause; Y99.8 Other external cause status
CPT/HCPCS: 73610; 99284

== ENCOUNTER 2019-12-29 15:32 | Emergency (ER) | payer MEDICARE, OTHER ==
[~2019-12-29] VITALS: Ht 167.6 cm; Wt 75.0 kg
[~2019-12-29 15:32] MED LIST changes: +NAPR-695 PO
[2019-12-29 15:35] VITALS: BP 182/94
--- NOTE | 2019-12-29 16:18 | RAD ---
3 view left ankle HISTORY: Pain and swelling after fall AP lateral oblique views There is moderate soft tissue swelling over the lateral malleolus. There is a subtle lucency in the lateral cortex without interruption of the cortex. The tibiotalar relationship is normal. There is a irregularity of the medial talus on the AP and oblique views and the talus is not well seen on the lateral view. IMPRESSION: 1. Moderate soft tissue swelling over the lateral pelvis could be secondary to ligamentous injury. 2. Possible hairline fracture of the lateral malleolus above the level plafond. 3. Possible fracture of the talus. End impression Electronically signed by: Kendrick Josue III, MD (12/29/2019 4:15 PM) [id number]
--- NOTE | 2019-12-29 16:59 | PHYS DOC ---
Past Medical History Past Medical History: CHF, Hypertension, Renal Disease, Other Additional Past Medical Histor: CEREBRAL PALSY Past Surgical History: Pacemaker, Other Additional Past Surgical Histo: HAMSTRING RELEASE, BILAT GROIN, L HIP PLATE, BONE TRANSFUSION Smoking Status: Never Smoker Alcohol Use: None Drug Use: None General Adult EDM: Chief Complaint: ANKLE PROBLEM HPI: HPI: Patient is a 59-year-old male who does not get around well at baseline injured his left ankle a couple of weeks ago was seen here and had negative x-rays and sent home. Since that time he is continued to have quite a bit of pain and is really unable to bear any weight on his ankle. He denies any new injuries to the area. He states the pain is worse when he tries to put any pressure on it he is tried elevating it at home with no relief. [] Review of Systems: Review of Systems: Constitutional: Denies fever or chills. [] Eyes: Denies change in visual acuity. [] HENT: Denies nasal congestion or sore throat. [] Respiratory: Denies cough or shortness of breath. [] Cardiovascular: Denies chest pain or edema. [] GI: Denies abdominal pain, nausea, vomiting, bloody stools or diarrhea. [] : Denies dysuria. [] Musculoskeletal: Per HPI [] Integument: Denies rash. [] Neurologic: Denies headache, focal weakness or sensory changes. [] Endocrine: Denies polyuria or polydipsia. [] Lymphatic: Denies swollen glands. [] Psychiatric: Denies depression or anxiety. [] Heart Score: Risk Factors: Risk Factors: DM, Current or recent (<one month) smoker, HTN, HLP, family history of CAD, obesity. Risk Scores: Score 0 - 3: 2.5% MACE over next 6 weeks - Discharge Home Score 4 - 6: 20.3% MACE over next 6 weeks - Admit for Clinical Observation Score 7 - 10: 72.7% MACE over next 6 weeks - Early Invasive Strategies Allergies: Allergies: Allergies Coded Allergies Type Severity Reaction Last Updated Verified No Known Drug Allergies 04/28/18 No Physical Exam: PE: Constitutional: Well developed, well nourished, mild distress, non-toxic appearance. [] HENT: Normocephalic, atraumatic, bilateral external ears normal, oropharynx moist, no oral exudates, nose normal. [] Eyes: PERRLA, EOMI, conjunctiva normal, no discharge. [] Neck: Normal range of motion, no tenderness, supple, no stridor. [] Cardiovascular:Heart rate regular rhythm, no murmur [] Lungs & Thorax: Bilateral breath sounds clear to auscultation [] Abdomen: Bowel sounds normal, soft, no tenderness, no masses, no pulsatile masses. [] Skin: Warm, dry, no erythema, no rash. [] Back: No tenderness, no CVA tenderness. [] Extremities: The left ankle appears chronically deformed however he does have quite a bit of pain over the lateral malleolus and pain with any movement. [] Neurologic: Alert and oriented X 3, normal motor function, normal sensory function, no focal deficits noted. [] Psychologic: Anxious. [] Current Patient Data: Vital Signs: Vital Signs Date Time Temp Pulse Resp B/P (MAP) Pulse Ox O2 Delivery O2 Flow Rate FiO2 /25/20 15:35 96.6 67 18 182/94 (123) 100 Room Air 96.6 EKG: EKG: [] Radiology/Procedures: Radiology/Procedures: []REASON: pain/swelling after fall PROCEDURE: ANKLE LEFT 3V 3 view left ankle HISTORY: Pain and swelling after fall AP lateral oblique views There is moderate soft tissue swelling over the lateral malleolus. There is a subtle lucency in the lateral cortex without interruption of the cortex. The tibiotalar relationship is normal. There is a irregularity of the medial talus on the AP and oblique views and the talus is not well seen on the lateral view. IMPRESSION: 1. Moderate soft tissue swelling over the lateral pelvis could be secondary to ligamentous injury. 2. Possible hairline fracture of the lateral malleolus above the level plafond. 3. Possible fracture of the talus. Impression: REASON: talus fracture PROCEDURE: CT LOWER EXTREMITY WO LEFT CT left lower extremity without contrast HISTORY: Pain and abnormal x-ray Axial helical images were obtained of the left foot and ankle and axial coronal and sagittal reconstruction was performed. FINDINGS: There is gross osteopenia. The tibiotalar relationship is normal. The visualized osseous structures appear intact without interruption of cortex. Fat within the sinus Tarsi is preserved. There is diffuse soft tissue swelling. IMPRESSION: 1. Diffuse gross osteopenia. This could be disuse atrophy. 2. Osteopenia limiting sensitivity for possible nondisplaced fractures however no fracture is seen. The x-ray findings is likely due to osteopenia and thickening of the trabecula. 3. Diffuse soft tissue edema. Course & Med Decision Making: Course & Med Decision Making Pertinent Labs and Imaging studies reviewed. (See chart for details) [] Dragon Disclaimer: Dragon Disclaimer: This electronic medical record was generated, in whole or in part, using a voice recognition dictation system. Departure Departure Impression: Primary Impression: Left lateral ankle pain Disposition: HOME, SELF-CARE Condition: STABLE Referrals: NIMA MEYER (PCP) SHINE POLK II, MD Follow-up in the next 5 to 7 days for recheck Patient Instructions: Ankle Sprain, Ankle Sprain, Acute, with Phase I Rehab- SportsMed, Ankle Sprain, Acute, with Phase II Rehab-SportsMed Scripts Hydrocodone/Apap 5-325 (NORCO 5-325 TABLET) 1 Each Tablet 1 TAB PO PRN Q6HRS PRN for PAIN, #12 TAB 0 Refills Prov: LILIBETH CERRATO DO 12/29/19 LILIBETH CERRATO DO Dec 29, 2019 16:59
--- NOTE | 2019-12-29 17:09 | RAD ---
CT left lower extremity without contrast HISTORY: Pain and abnormal x-ray Axial helical images were obtained of the left foot and ankle and axial coronal and sagittal reconstruction was performed. FINDINGS: There is gross osteopenia. The tibiotalar relationship is normal. The visualized osseous structures appear intact without interruption of cortex. Fat within the sinus Tarsi is preserved. There is diffuse soft tissue swelling. IMPRESSION: 1. Diffuse gross osteopenia. This could be disuse atrophy. 2. Osteopenia limiting sensitivity for possible nondisplaced fractures however no fracture is seen. The x-ray findings is likely due to osteopenia and thickening of the trabecula. 3. Diffuse soft tissue edema. End impression PQRS Compliance Statement: One or more of the following individualized dose reduction techniques were utilized for this examination: 1. Automated exposure control 2. Adjustment of the mA and/or kV according to patient size 3. Use of iterative reconstruction technique Electronically signed by: Kendrick Josue III, MD (12/29/2019 5:06 PM) [id number]
[2019-12-29] MEDS ORDERED: HYDR-3164 PO (17:25)
== END 2019-12-29 18:04 | disposition home or self-care (01) ==
LOC: ER 15:32
DX: M25.572 Pain in left ankle and joints of left foot (principal); G89.11 Acute pain due to trauma; I11.0 Hypertensive heart disease with heart failure; I50.9 Heart failure, unspecified; Z95.0 Presence of cardiac pacemaker; W18.39XA Other fall on same level, initial encounter; Y93.89 Activity, other specified; Y92.89 Other specified places as the place of occurrence of the external cause; Y99.8 Other external cause status
CPT/HCPCS: 73610; 73700; 99284-25

== ENCOUNTER → 2020-11-28 | Outpatient (CLI) | payer MEDICARE, OTHER ==
[~2020-11-28] MED LIST changes: -AMIO200T4 PO; +AMIO200T6 PO; +AMLO-187 PO; -AMLO10TA8 PO; +HYDR-3164 PO; +REGADENOSON 0.4 MG/5 ML DISP.SYRIN. IV ONE
--- NOTE | 2020-11-28 10:59 | CARD ---
MR#: [id number] Date of Study: 11/28/2020 Ordering Physician: WES JAMES, Referring Physician: WES JAMES, Tech: Yas Trent, [facility] APPROVED REPORT EXAM: Two-dimensional and M-mode echocardiogram with Doppler and color Doppler. Other Information Quality : AverageHR: 62bpm INDICATION Pre-Op Ventricular Tachycardia Surgery/Intervention ICD/Pacemaker: RISK FACTORS Hypertension Hyperlipidemia 2D DIMENSIONS RVDd3.6 (2.9-3.5cm)Left Atrium(2D)3.4 (1.6-4.0cm) IVSd1.2 (0.7-1.1cm)Aortic Root(2D)3.1 (2.0-3.7cm) LVDd5.2 (3.9-5.9cm)LVOT Diameter2.1 (1.8-2.4cm) PWd1.3 (0.7-1.1cm)LVDs3.6 (2.5-4.0cm) FS (%) 29.4 %SV70.9 ml LVEF(%)56.0 (>50%) Aortic Valve AoV Peak Pablito.142.4cm/sAoV VTI32.2cm AO Peak GR.8.1mmHgLVOT Peak Pablito.111.1cm/s LVOT VTI 24.96cmAO Mean GR.4mmHg CATA (VMAX)2.92am2KJC (VTI)2.61cm2 Mitral Valve MV E Hfmsiswt25.1cm/sMV DECEL UIHR455on MV A Swzlrbgf27.4cm/sMV UZW75bi E/A Ratio0.8MVA (PHT)3.74cm2 TDI E/Lateral E'9.1E/Medial E'11.2 Pulmonary Valve PV Peak Frbyreot21.0cm/sPV Peak Grad.3mmHg Tricuspid Valve TR P. Bhnfxtex839pk/sRAP POBNOYOT1yqUy TR Peak Gr.78sjLdSHZE91isKm Pulmonary Vein S1 Vigfbrzx16.4cm/sD2 Wwlaklxg49.8cm/s PVa [id number] LEFT VENTRICLE The left ventricle is normal size. There is mild concentric left ventricular hypertrophy. The left ve ntricular systolic function is mild to moderately reduced. The Ejection Fraction is 40%. Transmitral Doppler flow pattern is Grade I-abnormal relaxation pattern. RIGHT VENTRICLE The right ventricle is normal size. There is normal right ventricular wall thickness. The right ventr icular systolic function is normal. ATRIA The left atrium size is normal. The right atrium size is normal. The interatrial septum is intact wit h no evidence for an atrial septal defect or patent foramen ovale as noted on 2-D or Doppler imaging. AORTIC VALVE The aortic valve is normal in structure and function. Doppler and Color Flow revealed trace aortic re gurgitation. There is no significant aortic valvular stenosis. Calculated aortic valve area is 2.63 c m2 with maximum pressure gradient of 9 mmHg and mean pressure gradient of 5 mmHg. MITRAL VALVE The mitral valve is normal in structure and function. There is no evidence of mitral valve prolapse. There is no mitral valve stenosis. Doppler and Color-flow revealed trace mitral regurgitation. TRICUSPID VALVE The tricuspid valve is normal in structure and function. Doppler and Color Flow revealed trace tricus pid regurgitation with an estimated PAP of 23 mmHg. There is no tricuspid valve stenosis. PULMONIC VALVE The pulmonic valve is not well visualized. Doppler and Color Flow revealed trace pulmonic valvular re gurgitation. GREAT VESSELS The aortic root is normal in size. The IVC is normal in size and collapses >50% with inspiration. PERICARDIAL EFFUSION There is no evidence of significant pericardial effusion. Critical Notification Critical Value: No <Conclusion> The left ventricular systolic function is mild to moderately reduced. The Ejection Fraction is 40%. Transmitral Doppler flow pattern is Grade I-abnormal relaxation pattern. Trace mitral regurgitation. Trace tricuspid regurgitation with an estimated PAP of 23 mmHg. There is no evidence of significant pericardial effusion. Signed by : Jorge Vicente, Electronically Approved : 11/28/2020 10:59:33
--- NOTE | 2020-11-28 14:37 | RAD ---
MR#: [id number] Date of Study: 11/28/2020 Ordering Physician: WES JAMES, Referring Physician: BHARGAVI SORTO Tech: RT Wilma Mojica) (N) APPROVED REPORT Test Type: Pharmacological Stress Nurse/Tech: Marcus Carver RN Test Indications: nonischemia cardiomyopathy, HTN Cardiac History: HTN, AICD/PPM Medications: See Electronic Medical Record Medical History: See Electronic Medical Record Resting ECG: SR Resting Heart Rate: 69 bpm Resting Blood Pressure: 128/83mmHg Pretest Chest Pain: None Nurse/Tech Notes Lungs CTA, S1S2 Consent: The procedure was explained to the patient in lay terms. Informed consent was witnessed. Juan eout was entered into [employer]. History and Stress Test performed by RT Yunior (Reshma) (N) Pharm. Details Pharmacologic stress testing was performed using 0.4mg per 5ml of regadenoson given intravenously ove r 7-10 seconds. Stress Symptoms No chest pain or symptoms. POST EXERCISE Reason for Termination: Infusion complete Max HR: 86 bpm Max Blood Pressure: 105/56mmHg Blood Pressure response to exercise: Normal blood pressure response during stress. Heart Rate response to exercise: normal response Chest Pain: No. Arrhythmia: Yes. PVC ST Change: No. INTERPRETATION Stress EKG Conclusion: Baseline EKG showed sinus rhythm. No ischemic changes at peak stress. No arr hythmias. Imaging Protocol IMAGE PROTOCOL: Rest Tc-99m/stress Tc-99m 1 day Rest: Stress: Viability: Radiopharm.Tc99m DvaiiczwgOw11p Sestamibi Dose10.5mCi 32.1mCi Duration 13min. 13min. Img Date 11/28/2020 11/28/2020 Inj-Img Qmgn52xeh. 60min. Rest Admin Site:IV - Left HandAdministrator:RT Wilma Barlow)(N) Stress Admin Site: IV - Left HandAdministrator: RT Wilma Mojica)(N) STRESS DATA End Diast. Vol.170.0mlLVEDV index BSA90.0ml End Syst. Vol.105.0mlLVESV index BSA55.0ml Myocardial Waze000.0gEject. Hsxirgqf09.0% Stress Scores Regional WT2.00Summed WT36.00 Regional WM0.00Summed WM15.00 LV Perfusion Scintigraphic images showed apical wall thinning without any significant fixed or reversible defects. Wall Motion Moderate left ventricular systolic dysfunction with ejection fraction calculated at 36%. LV Perf. Quant 17 Seg. SSS21.00 17 Seg. SRS21.00 17 Seg. SDS2.00 Stress Defect Extent (% LAD)36.90Rest Defect Extent (% LAD)37.50Rev. Defect Extent (% LAD)4.40 Stress Defect Extent (% LCX) 93.80Rest Defect Extent (% LCX)81.30Rev. Defect Extent (% LCX)23.80 Stress Defect Extent (% RCA)21.10Rest Defect Extent (% RCA)27.80Rev. Defect Extent (% RCA)0.00 Stress Defect Extent (% ANGELICA)48.90Rest Defect Extent (% ANGELICA)46.70Rev. Defect Extent (% ANGELICA)7.00 Conclusion 1. Regadenoson cardioisotope stress test showed apical wall thinning without any definite evidence of ischemia or infarct. 2. Moderate left ventricle systolic dysfunction with ejection fraction calculated at 36%. 3. Low to intermediate risk for cardiac events. Signed by : Jorge Vicente, Electronically Approved : 11/28/2020 14:36:23
--- NOTE | 2020-12-01 12:59 | RAD ---
MR#: [id number] Date of Study: 11/28/2020 Ordering Physician: WES JAMES, Referring Physician: WES JAMES, Tech: David Meza MBA, RDMS, RVT, RDCS, RTR APPROVED REPORT Left Lower Extremity Venous Study for DVT Patient Location: OUT-PATIENT Vein Imaging (Left) CFV (L): Compressible SFJ (L): Compressible FEM (L): Compressible POP (L): Compressible DFV (L): Compressible PTV (L): Spontaneous GSV (L): Spontaneous Peroneals (L): Spontaneous Doppler Evaluation (Left) CFV (L):Spontaneous POP (L):Spontaneous Findings On the left, the grayscale images of the common femoral, superficial femoral and popliteal veins do n ot demonstrate any evidence of thrombus and these veins appear to be compressible. The below-knee vei ns again were not well visualized but grossly appear to be compressible. Spectral imaging and color D oppler do not reveal any evidence of obstruction to flow with normal respirophasic variation above th e knee. The below-knee veins demonstrate spontaneous flow. Critical Notification Critical Value: No <Conclusion> 1. No evidence of LLE DVT Signed by : Wes James, Electronically Approved : 12/01/2020 12:59:30
--- NOTE | 2020-12-01 13:01 | RAD ---
MR#: [id number] Date of Study: 11/28/2020 Ordering Physician: WES JAMES, Referring Physician: WES JAMES, Tech: David Meza MBA, RDMS, RVT, RDCS, RTR APPROVED REPORT Left Upper Extremity Venous Study for DVT. Patient Location: OUT-PATIENT Vein Imaging (Left) IJV (L): Spontaneous SCV (L): Spontaneous Axillary (L): Compressible Brachial (L): Compressible Basilic (L): Compressible Cephalic (L): Compressible Radial (L): Compressible Ulnar (L): Compressible Findings Grayscale images of the left upper extremity internal jugular, subclavian, cephalic, brachial and rad ial and ulnar veins reveals no evidence of thrombus. There is spontaneous flow noted without appropr iate venous spectral waveforms. Critical Notification Critical Value: No <Conclusion> 1. No obvious evidence of left upper extremity DVT Signed by : Wes James, Electronically Approved : 12/01/2020 13:00:53
== END ==
LOC: NM 08:41
PROVIDERS: ATTEND Internal Medicine Cardiovascular Disease
DX: Z01.810 Encounter for preprocedural cardiovascular examination (principal); I11.9 Hypertensive heart disease without heart failure; Z95.810 Presence of automatic (implantable) cardiac defibrillator
CPT/HCPCS: 78452; 93017; 93306; 93971; A9500; J2785